=== PATIENT | female | born 1995 | race Caucasian/White ===

== ENCOUNTER 2018-06-14 10:44 | Emergency (ER) | payer BC ==
[2018-06-14] MEDS ORDERED: Erythromycin OPTH OINT* APPLIC OINT LEFT EYE ONE (12:13)
--- NOTE | 2018-06-14 12:13 | ED ---
Throat Pain/Nasal Congestion - HPI Summary HPI Summary: 22-year-old female presents with left eyelid swelling since yesterday. She has been placing heat on the area. States has had this before. No sinus congestion. No fevers. No change in vision. No erythema. No drainage from her eyes. She does not wear contacts or glasses. - History of Current Complaint Chief Complaint: EDEyeProblem Time Seen by Provider: 06/14/18 12:11 - Allergies/Home Medications Allergies/Adverse Reactions: Allergies Allergy/AdvReac Type Severity Reaction Status Date / Time Cephalosporins Allergy Rash Verified 06/14/18 11:24 PMH/Surg Hx/FS Hx/Imm Hx Endocrine/Hematology History: Denies: Hx Anticoagulant Therapy Respiratory History: Denies: Hx Asthma Infectious Disease History: No Infectious Disease History: Denies: Traveled Outside the [place] in Last 30 Days - Family History Known Family History: Negative: Diabetes - Social History Substance Use Type: Reports: None Smoking Status (MU): Never Smoked Tobacco Review of Systems Negative: Fever Positive: Other - left eyelid swelling Negative: Chest Pain Negative: Shortness Of Breath All Other Systems Reviewed And Are Negative: Yes Physical Exam Triage Information Reviewed: Yes Vital Signs On Initial Exam: Initial Vitals Temp Pulse Resp BP Pulse Ox 98.3 F 80 14 134/91 98 06/14/18 11:21 06/14/18 11:21 06/14/18 11:21 06/14/18 11:21 06/14/18 11:21 Vital Signs Reviewed: Yes Appearance: Positive: Well-Appearing Skin: Positive: Warm, Dry Head/Face: Positive: Normal Head/Face Inspection Eyes: Positive: EOMI, FIOR, Conjunctiva Clear, Other: - edema and erythema to left upper eyelid ENT: Positive: Normal ENT inspection, Pharynx normal, TMs normal Respiratory/Lung Sounds: Positive: Clear to Auscultation, Breath Sounds Present Cardiovascular: Positive: Normal, RRR Musculoskeletal: Positive: Normal Neurological: Positive: Normal Psychiatric: Positive: Normal Diagnostics - Vital Signs Vital Signs Temp Pulse Resp BP Pulse Ox 06/14/18 11:21 98.3 F 80 14 134/91 98 - Laboratory Lab Statement: Any lab studies that have been ordered have been reviewed, and results considered in the medical decision making process. EENT Course/Dx - Course Assessment/Plan: 22-year-old female presents with left eyelid swelling since yesterday. She has been placing heat on the area. States has had this before. No sinus congestion. No fevers. No change in vision. No erythema. No drainage from her eyes. She does not wear contacts or glasses. On exam has edema and erythema of the upper lid on left that is consistent with a stye. No evidence of periorbital cellulitis. We'll treat with erythromycin and heat. Patient understands agrees with plan. - Differential Diagnoses Differential Diagnoses: Periorbital/Orbital Cellulitis, Sinusitis, Other - stye - Diagnoses Provider Diagnoses: Stye Discharge - Sign-Out/Discharge Documenting (check all that apply): Patient Departure - Discharge Plan Condition: Good Disposition: HOME Prescriptions: Erythromycin OPTH OINT* [Erythromycin 0.5% OPTH OINT*] 1 applic LEFT EYE QID #1 ophth.oint Patient Education Materials: [place] (ED) Referrals: Diane Garcia MD [Primary Care Provider] - Additional Instructions: place heat on area apply erythromycin four times a day until resolves Return to ED if develop any swelling below eyes, fevers, or any new or worsening symptoms - Billing Disposition and Condition Condition: GOOD Disposition: Home
[2018-06-14 12:22] VITALS: BP 132/90
== END 2018-06-14 12:20 | disposition home or self-care (01) ==
LOC: ED 10:44
DX: H00.014 Hordeolum externum left upper eyelid (principal)
CPT/HCPCS: 99281